=== PATIENT | male | born 1960 | race African-American/Black ===

== ENCOUNTER 2018-04-05 17:30 | Observation (INO) | payer OTHER ==
[~2018-04-05] VITALS: Ht 172.7 cm; Wt 111.6 kg
[2018-04-05 18:32] LABS: BASOPHILS % 0.3 % (0.0-1.0); EOSINOPHILS # (AUTO) 0.1 (0.0-0.4); EOSINOPHILS % 2.3 % (0.0-6.0); HEMATOCRIT 48.1 % (38.2-49.6); HEMOGLOBIN 15.2 g/dL (14.0-18.0); LYMPHOCYTES # (AUTO) 1.3 (1.0-3.2); LYMPHOCYTES % 34.4 % (18.0-39.1); MEAN CORPUSCULAR HEMOGLOBIN 27.2 pg (28-32); MEAN CORPUSCULAR HGB CONC 31.6 g/dL (31-35); MONOCYTES # (AUTO) 0.5 (0.2-0.8); MONOCYTES % 12.3 % (4.4-11.3); NEUTROPHILS % 50.4 % (38.7-80.0); PLATELET COUNT 165 x10e3/uL (140-360); RED BLOOD COUNT 5.59 x10e6/uL (4.3-5.7); RED CELL DISTRIBUTION WIDTH 13.3 % (11.7-14.4)
[2018-04-05 18:42] LABS: INR 1.2; PROTHROMBIN TIME 14.3 seconds (11.9-14.5)
[2018-04-05 18:43] LABS: PARTIAL THROMBOPLASTIN TIME 28.1 seconds (23.8-35.5)
[2018-04-05 18:51] LABS: ALBUMIN 3.4 g/dL (3.5-5.0); ALBUMIN/GLOBULIN RATIO 1.4 (0.8-2.0); ANION GAP 10.9 mmol/L (8-16); CALCIUM 8.5 mg/dL (8.4-10.2); CREATININE, SERUM 1.33 mg/dL (0.72-1.25); POTASSIUM 3.9 mmol/L (3.5-5.1)
[2018-04-05 19:02] LABS: CREATINE KINASE MB 3.9 ng/mL (0-5.0)
--- NOTE | 2018-04-05 19:35 | Diagnostic Imaging Report ---
EXAMINATION: PA and lateral views of the chest. COMPARISON: None CLINICAL HISTORY: Chest pain DISCUSSION: Lines/tubes: None. Lungs: The lungs are well inflated and clear. No pneumonia or pulmonary edema. Pleura: There is no pleural effusion or pneumothorax. Heart and mediastinum: The cardiomediastinal silhouette is normal. Bones and soft tissues: No acute bony abnormalities. IMPRESSION: No acute cardiopulmonary abnormalities. Signed by: Dr. Temo Kunz M.D. on 04/05/2018 7:32 PM
[2018-04-05] MEDS ORDERED: SODIUM CHLORIDE FLUSH 10 ML SYR INJ PRN (23:45)
[2018-04-05] MEDS ORDERED: NITROGLYCERIN 0.4 MG SUBL SL PRN (23:45)
[2018-04-05] MEDS ORDERED: ASPIRIN 81 MG CHEW TAB PO ONE (23:45)
[2018-04-05] MEDS ORDERED: ONDANSETRON HCL INJ 2 MG/ML VIAL IV PRN (23:45)
[2018-04-05] MEDS ORDERED: FAMOTIDINE 20 MG/2 ML VIAL IV SCH (23:45)
[2018-04-06] VITALS (7 sets, daily range): BP systolic 116–143; BP diastolic 68–76
[2018-04-06 03:20] LABS: CREATINE KINASE MB 3.4 ng/mL (0-5.0)
[2018-04-06] MEDS ORDERED: MOTRIN800 MG (04:28)
[2018-04-06] MEDS ORDERED: ZANTAC150 MG (05:10)
[2018-04-06 05:52] LABS: CHOL/HDL RATIO 3.6 (3.9-4.7)
[2018-04-06] MEDS ORDERED: NASONEX17 GM INH (07:24)
[2018-04-06] MEDS: ASPIRIN 81 MG ENTERIC COATED PO SCH (08:49)
[2018-04-06 10:30] LABS: CREATINE KINASE 477 IU/L (30-200)
[2018-04-06] MEDS: SODIUM CHLORIDE 0.9% 1000ML 1,000 ML IV SCH ×4 (13:46→23:49)
[2018-04-06] MEDS ORDERED: HEPARIN SOD/SOD CHLORIDE 2,000 ML ONE (13:54)
[2018-04-06] MEDS ORDERED: LIDOCAINE HCL 2% LOCAL 20 ML VIAL ONE (13:54)
[2018-04-06] MEDS ORDERED: CLOPIDOGREL BISULFATE 75 MG TAB PO ONE (14:15)
[2018-04-06] MEDS ORDERED: FENTANYL CITRATE/PF 100MCG/2 ML INJ ONE (14:53)
[2018-04-06] MEDS ORDERED: MIDAZOLAM HCL 2 MG/2 ML VIAL ONE ×2 (14:53→15:01)
[2018-04-06] MEDS ORDERED: SODIUM CHLORIDE 0.9% 1000ML 1,000 ML ONE (14:53)
[2018-04-06] MEDS ORDERED: ONDANSETRON HCL INJ 2 MG/ML VIAL IV PRN (15:30)
[2018-04-06] MEDS ORDERED: ACETAMINOPHEN 325 MG TAB PO PRN (15:30)
--- NOTE | 2018-04-06 15:57 | Consultation ---
DATE OF CONSULTATION: April 06, 2018 CARDIOLOGY CONSULTATION REASON FOR CONSULTATION: Chest pain. HISTORY OF PRESENT ILLNESS: Mr. Guillermo is a 57-year-old gentleman with past medical history of allergic rhinitis who presents to this institution with 5-day history of escalating chest pain symptoms. Patient at baseline works for the [employer] for 10 hour shift 6 days a week and is involved in heavy duty manual-type labor. He developed new onset of substernal chest pressure, tightness, brought upon with initially lifting activity associated with extreme dyspnea and shortness of breath. He has to rest for the pain to go away in last minutes at a time. He had an intense episode yesterday afternoon while at work lifting a heavy box and was in extreme pain and broke out in cold sweat diaphoresis associated with nausea highly concerning for typical angina symptoms. He has been fatigued and not quite feeling right and has been very apprehensive in doing anything and came to the emergency room for further care and management. His last episode was several hours ago and we had a long discussion in terms of differential diagnosis as well as potential causes of his complaints. In terms of reviewing his labs, his troponin was borderline negative and downtrending and his CK appears to be downtrending going from 664 to 561 to 477. We had a long discussion in terms of management options as well as risks and benefits of each approach. PAST MEDICAL HISTORY 1. History of allergic rhinitis. 2. History of right leg fracture in 4 places. 3. History of retinal detachment repair in the right eye. FAMILY HISTORY: Mother alive in her mid 80s, has high blood pressure and cholesterol. Dad in his 60s, had congestive heart failure. Denies any premature family history of coronary artery disease. SOCIAL HISTORY: He is a lifelong nonsmoker. Denies any alcohol or illicit drug use. ALLERGIES: NO KNOWN DRUG ALLERGIES. HOME MEDICATIONS: Include ibuprofen p.r.n., Nasonex nasal spray b.i.d., and Zantac 150 mg daily for his chest pain symptoms, which have not helped his symptoms complex. REVIEW OF SYSTEMS GENERAL: Positive for fatigue and malaise. Denies any fevers, chills, or any weight changes. HEENT: Has occasional headaches. No current visual complaints. Had history of right eye problems due to retinal detaches. No sore throat or stuffy nose. RESPIRATORY: Denies any pleuritic chest pain. Shortness of breath as above. CARDIOVASCULAR: As per HPI. Denies any palpitations, orthopnea, PND, syncope, or near syncope. GI: Denies any abdominal pain, bright red blood per rectum, melena, or hematemesis. : Denies any dysuria, pyuria, or change in urinary frequency. MUSCULOSKELETAL: Denies any back pains. Does have chronic right leg pain off and on from his previous fracture. HEMATOLOGY: Denies any easy bruising. No bleeding. ID: No known infection issues. NEUROLOGIC: Denies any focal weakness, numbness, tingling, seizures, headaches, TIA, or stroke. Remainder of the review of systems is negative otherwise as mentioned. PHYSICAL EXAMINATION VITAL SIGNS: Height of 68 inches, weight of 240 pounds, BMI is 36.5, temperature of 97.4, pulse of 54, respiratory rate of 16, blood pressure 136/88, and O2 sat 95% on room air. GENERAL: This is a wall-nourished, well-developed gentleman. He currently appears mildly short of breath. HEENT: Normocephalic, atraumatic. Pupils equal, round and reactive to light. Extraocular movements are intact. Oropharynx is clear. NECK: No elevation of jugular venous pulsation. No carotid bruits. CARDIOVASCULAR: Regular rate and rhythm. Normal S1 and S2. Soft 2/6 systolic murmur in left lower sternal border. LUNGS: Show slightly decreased bibasilar breast sounds, but otherwise clear. ABDOMEN: Soft, nontender, and nondistended. Normoactive bowel sounds. No hepatosplenomegaly. BACK: No costovertebral angle tenderness. EXTREMITIES: Warm with 2+ bilateral radial pulses, 2+ bilateral femoral pulses, and 1+ pedal pulses. NEUROLOGIC: Cranial nerves II through XII are intact. Strength is 5/5 and grossly nonfocal. PSYCH: Normal fluent speech. Appropriate affect. No anxiety or delusions. LABS: White count of 3.9, hemoglobin 15.3, hematocrit 48.1, and platelets of 165. Sodium 140, potassium 3.9, chloride 109, bicarb 24, BUN 17, creatinine 1.33, glucose of 109, calcium of 8.5, AST 20, ALT 18, alk phos 48, total protein 5.9, and albumin of 3.4. Lipid profile shows total cholesterol 137, HDL of 38, LDL of 89, and triglycerides of 51. INR is 1.2. EKG reveals normal sinus rhythm, normal axis. Chest x-ray shows no acute abnormalities. DIAGNOSES 1. Rapidly escalating chest pain symptoms, now on minimal activity concerning for unstable angina pectoris/acute coronary syndrome. 2. Obesity. 3. Family history of congestive heart failure. 4. Allergic rhinitis. PLAN/RECOMMENDATIONS 1. Due to typical nature of this patient's symptom complex, we had a discussion in terms of different approaches including stress testing and heart catheterization and patient wishes definitive ischemic evaluation, which I think is reasonable given the lack of a clear-cut alternative diagnosis and is very typical new onset angina that is rapidly escalating. 2. Patient appears to be in mild dyspnea and I am concerned that he may be having early heart failure symptoms. 3. We will give him aspirin, Plavix, and empiric statin. 4. Case discussed, wishes to proceed with cardiac catheterization. 5. We will check echocardiogram to evaluate his left ventricular function. Job#: [id number] JANET
--- NOTE | 2018-04-06 17:39 | Operative Report ---
DATE OF PROCEDURE: April 06, 2018 PROCEDURES PERFORMED 1. Left heart cardiac catheterization with coronary angiography. 2. Left ventriculography. 3. Vascular closure of the right common femoral arteriotomy. TABULAR TYPIST: Lane Nathan. INDICATION FOR PROCEDURE: This is a 57-year-old gentleman who presents to this institution with a 1-week history of escalating exertional chest pain, tightness, with very typical angina symptoms with escalation highly consistent with an unstable angina picture of pectoris clinical scenario. This is for definitive ischemic evaluation. DESCRIPTION OF PROCEDURE: After risks, benefits, pros and cons of today's procedure were explained, patient agreed to proceed. Patient was brought to the cardiac catheterization laboratory where the right groin was prepped and draped in the usual sterile fashion. 1% Lidocaine was used to numb the right groin region. Access to the right femoral artery was obtained and then a 4-Nigerien femoral sheath was placed. Selective coronary angiography of the [place] left and right coronary arteries was performed with a JL-4 and 3DRC diagnostic catheters respectively. An angled pigtail catheter was placed and in the ventricle for left ventriculography and hemodynamic assessment of left ventricular filling pressures. After noting no significant coronary disease, it was decided to quit the case. Femoral angiogram was performed, revealing femoral artery stick and a sheath upsize to 5-Nigerien sheath was done followed by and a 5-Nigerien vascade closure device was successfully deployed, achieving hemostasis. COMPLICATIONS: None. ESTIMATED BLOOD LOSS: None. FINDINGS 1. The left main is angiographically normal and gives rise to an LAD, ramus intermedius and circumflex branch. 2. The LAD and its branches are angiographically normal. It has 1 large diagonal branch. 3. The ramus intermedius is a moderate-caliber vessel and supplies much of the anterolateral myocardial wall and is angiographically normal. 4. The left circumflex artery gives rise to a small mid marginal and a moderate to large posterolateral marginal branch. This vessel and its branches are angiographically normal. 5. The RCA is dominant and gives rise to a right PDA and right PLV branch. This vessel and branches are angiographically normal. 6. The left ventricular ejection fraction is 55% with end-diastolic pressure of 18 mmHg. There is no significant LV to aortic pullback gradient. PLAN/RECOMMENDATIONS 1. Aggressive risk factor modification and medical therapy. 2. Overall will need to entertain alternative diagnoses in terms of his chest pain symptoms. 3. Patient was loaded with Plavix prior to the procedure. Okay to stop this therapy. 4. Likely overnight stay for groin check and if doing well likely can go home tomorrow. Job#: [id number] EV MTDD
[2018-04-06] MEDS ORDERED: ATORVASTATIN 20 MG TAB PO SCH (21:00)
[2018-04-07] VITALS: BP 131/63
[2018-04-07 00:47] VITALS: BP 142/68
[2018-04-07 04:00] VITALS: BP 141/63
[2018-04-07 05:24] LABS: BASOPHILS % 0.4 % (0.0-1.0); EOSINOPHILS # (AUTO) 0.1 (0.0-0.4); EOSINOPHILS % 1.3 % (0.0-6.0); HEMATOCRIT 47.8 % (38.2-49.6); HEMOGLOBIN 15.1 g/dL (14.0-18.0); LYMPHOCYTES # (AUTO) 1.2 (1.0-3.2); LYMPHOCYTES % 26.2 % (18.0-39.1); MEAN CORPUSCULAR HEMOGLOBIN 27.3 pg (28-32); MEAN CORPUSCULAR HGB CONC 31.6 g/dL (31-35); MEAN CORPUSCULAR VOLUME 86.4 fL (81-99); MONOCYTES # (AUTO) 0.6 (0.2-0.8); MONOCYTES % 13.2 % (4.4-11.3); NEUTROPHILS # (AUTO) 2.7 (2.1-6.9); NEUTROPHILS % 58.5 % (38.7-80.0); PLATELET COUNT 133 x10e3/uL (140-360); RED BLOOD COUNT 5.53 x10e6/uL (4.3-5.7); RED CELL DISTRIBUTION WIDTH 13.3 % (11.7-14.4)
[2018-04-07 05:31] LABS: INR 1.23; PROTHROMBIN TIME 14.6 seconds (11.9-14.5)
[2018-04-07 05:38] LABS: ALANINE AMINOTRANSFERASE 14 IU/L (0-55); ALBUMIN 2.9 g/dL (3.5-5.0); ALBUMIN/GLOBULIN RATIO 1.2 (0.8-2.0); ALKALINE PHOSPHATASE 44 IU/L (40-150); ANION GAP 10.9 mmol/L (8-16); BLOOD UREA NITROGEN 12 mg/dL (7-26); BUN/CREATININE RATIO 13 (6-25); CALCIUM 8.3 mg/dL (8.4-10.2); CARBON DIOXIDE 25 mmol/L (22-29); CHLORIDE 112 mmol/L (98-107); CREATININE, SERUM 0.93 mg/dL (0.72-1.25); EST GLOMERULAR FILTRATION RATE > 60 ML/MIN (60-); GLUCOSE 100 mg/dL (74-118); POTASSIUM 3.9 mmol/L (3.5-5.1); SODIUM 144 mmol/L (136-145)
[2018-04-07] MEDS: SODIUM CHLORIDE 0.9% 1000ML 1,000 ML IV SCH ×2 (05:46→11:29)
[2018-04-07 05:57] LABS: THYROID STIMULATING HORMONE 2.902 uIU/mL (0.350-4.940)
[2018-04-07 07:38] VITALS: BP 126/69
[2018-04-07 09:05] VITALS: BP 126/69
[2018-04-07] MEDS: ASPIRIN 81 MG ENTERIC COATED PO SCH (09:06)
--- NOTE | 2018-04-07 11:51 | Discharge Summary ---
PRIMARY CARE DOCTOR: Shaheed Crabtree MD, with [facility]. FINAL DIAGNOSIS: Noncardiac chest pain of unclear etiology. SECONDARY DIAGNOSIS: Acute renal insufficiency, resolved. CANAL STRUCTURE OPERATOR: Dr. Nathan, cardiology. PROCEDURES/STUDIES PERFORMED 1. Echocardiogram was benign. 2. Left heart catheterization was benign as well. HISTORY: Per [facility] and [facility]. HOSPITAL COURSE: The patient was admitted with what was initially thought to be unstable angina. The patient was evaluated by cardiology. Initially, stress test was planned. However, the patient was not satisfied with the fact that stress test cannot 100% definitively rule out coronary artery disease. Therefore, the patient underwent left heart cath. Surprisingly, the left heart cath was unremarkable. Initially, his creatinine was 1.3. On the date of discharge, it was 0.9. The patient also had very mild CPK elevation, initially was 664 and the last one was 477. However, he denies any muscle injury or trauma. The patient was seen and examined today. Condition on discharge was stable. DISCHARGE MEDICATIONS: Please see medication reconciliation form. KIMBERLEE LONG M.D. Job#: [id number] cc:SHAHEED CRABTREE M.D.
[2018-04-07 11:57] VITALS: BP 152/70
== END 2018-04-07 12:07 | disposition home or self-care (01) ==
LOC: ER 18:09 → ERHOLD 23:58 → CATH LAB V 04-06 14:33 → MED/SURG 04-06 17:10
PROVIDERS: ADMIT Internal Medicine; ATTEND Internal Medicine
DX: R07.89 Other chest pain (principal); I34.0 Nonrheumatic mitral (valve) insufficiency; I07.1 Rheumatic tricuspid insufficiency; K21.9 Gastro-esophageal reflux disease without esophagitis; N40.0 Benign prostatic hyperplasia without lower urinary tract symptoms; D70.9 Neutropenia, unspecified; E66.9 Obesity, unspecified; J30.9 Allergic rhinitis, unspecified; M79.89 Other specified soft tissue disorders; N18.3 Chronic kidney disease, stage 3 (moderate); Z68.37 Body mass index [BMI] 37.0-37.9, adult; Z82.49 Family history of ischemic heart disease and other diseases of the circulatory system; I12.9 Hypertensive chronic kidney disease with stage 1 through stage 4 chronic kidney disease, or unspecified chronic kidney disease; N28.9 Disorder of kidney and ureter, unspecified
CPT/HCPCS: 36415 ×3; 71046; 80053 ×2; 80061; 82550 ×2; 82553 ×2; 84443; 84484 ×2; 85025 ×2; 85610 ×2; 85730; 93005; 93306; 93458; 96360; 96361; 99284; C1760; C1766; G0378 ×3; J2001; J2250; J7030; J2405